=== PATIENT | female | born 1945 | race Caucasian/White ===

== ENCOUNTER 2024-03-16 09:14 | Inpatient (IN) ==
[2024-03-16 10:45] LABS: Activated Partial Thrombo Time 37.9 seconds (26.0-38.0); INR 1.21 (0.83-1.13)
[2024-03-16 10:47] LABS: Hematocrit 37.4 % (35-45); Hemoglobin 12.6 g/dL (11.5-14.3); Mean Corpuscular Hemoglobin 29.8 pg (27-33); Mean Corpuscular Hgb Conc 33.7 g/dL (31-36); Mean Corpuscular Volume 88.4 fL (80-97); Red Blood Count 4.24 10^6/uL (3.63-4.92); Red Cell Distribution Width 16.5 % (12-17); White Blood Count 10.3 10^3/uL (3.8-11.8)
[2024-03-16] MEDS: Piperacillin/Tazobac 3.375 BAG 3.375 GM/100 ML BAG IV ONE (11:20)
[2024-03-16 11:32] LABS: C Reactive Protein 84.34 mg/L (<8.01); Calcium 8.9 mg/dL (8.6-10.3); Creatinine, Serum 1.27 mg/dL (0.51-0.95); Globulin 2.9 g/dL (2-4); Potassium 4.2 mmol/L (3.5-5.0); Total Bilirubin 0.9 mg/dL (0.2-1.0); Total Protein 5.9 g/dL (6.4-8.9); eGFR CKD-EPI 42.8 (>60)
[2024-03-16 11:34] LABS: ABS Basophils 0.1 10^3/uL (0.0-0.1); ABS Lymphocytes 0.4 10^3/uL (1.0-4.8); ABS Monocytes 0.6 10^3/uL (0.0-0.9); ABS Neutrophils 9.2 10^3/uL (1.5-7.6); ABS Nucleated RBC 0.01 10^3/ul; Eosinophil % 0.2 %; Lymphocyte % 3.6 %; Mean Platelet Volume 8.6 fL (7.5-11.2); Nucleated Red Blood Cells % 0.1 %/100WBC (0.0-0.8); Platelet Count 64 10^3/uL (150-450)
[2024-03-16 12:07] LABS: High Sensitivity Troponin 1 Hr 14 pg/mL (<15)
[2024-03-16] MEDS: Lactated Ringers 1000 ml BAG 1,000 ML IV ONE (12:07)
[2024-03-16] MEDS ORDERED: Zosyn per Pharmacy NOTE FOLLOW UP SCH (15:00)
[2024-03-16 16:50] LABS: Urine Appearance Clear; Urine Bilirubin Negative (Negative); Urine Blood Negative (Negative); Urine Color Yellow; Urine Glucose Negative (Negative); Urine Ketones 1+ (Negative); Urine Nitrite Negative (Negative); Urine Protein Trace (Negative); Urine Specific Gravity 1.022 (1.002-1.030); Urine Urobilinogen Negative (Negative)
[2024-03-16] MEDS: ZOSYN 3.375 GM Q8H per EXTENDED INFUSION IV SCH (18:02)
[2024-03-16] MEDS: Heparin 5000 UNITS/ML 1 mL VIAL SUBCUT SCH (21:10)
[2024-03-17 06:23] LABS: Calcium 8.1 mg/dL (8.6-10.3); Creatinine, Serum 1.01 mg/dL (0.51-0.95); Potassium 3.9 mmol/L (3.5-5.0); eGFR CKD-EPI 56.3 (>60)
[2024-03-17 06:38] LABS: ABS Eosinophils 0.1 10^3/uL (0.0-0.5); ABS Lymphocytes 0.5 10^3/uL (1.0-4.8); ABS Monocytes 0.4 10^3/uL (0.0-0.9); ABS Neutrophils 3.4 10^3/uL (1.5-7.6); ABS Nucleated RBC 0.01 10^3/ul; Eosinophil % 1.3 %; Hematocrit 34.9 % (35-45); Hemoglobin 11.8 g/dL (11.5-14.3); Lymphocyte % 10.9 %; Mean Corpuscular Hemoglobin 30.2 pg (27-33); Mean Corpuscular Hgb Conc 33.7 g/dL (31-36); Mean Corpuscular Volume 89.4 fL (80-97); Mean Platelet Volume 8.9 fL (7.5-11.2); Nucleated Red Blood Cells % 0.3 %/100WBC (0.0-0.8); Platelet Count 58 10^3/uL (150-450); Red Blood Count 3.91 10^6/uL (3.63-4.92); Red Cell Distribution Width 16.4 % (12-17); White Blood Count 4.5 10^3/uL (3.8-11.8)
[2024-03-17] MEDS: Cholecalciferol (VIT D3) 1,000 unit TAB PO SCH (09:39)
[2024-03-18] MEDS: Levothyroxine 100 MCG/5 ML VIAL IV SCH (09:45)
[2024-03-18] MEDS: D5W 1/2 NS 1000 ml BAG 1,000 ML IV SCH (09:45)
[2024-03-18 16:47] LABS: Calcium 8.1 mg/dL (8.6-10.3); Creatinine, Serum 1.05 mg/dL (0.51-0.95); Potassium 3.9 mmol/L (3.5-5.0); TSH Ultra Thyroid Stim Horm 3.84 mcIU/mL (0.34-5.60); eGFR CKD-EPI 53.7 (>60)
[2024-03-18] MEDS ORDERED: Dextrose 50% Syringe 50 ml 25 GM/50 ML SYRINGE IV PUSH PRN (16:49)
[2024-03-18] MEDS: Dextrose 50% Syringe 50 ml 25 GM/50 ML SYRINGE ONE (17:13)
[2024-03-18] MEDS ORDERED: Lorazepam PYXIS KEY PRN (17:33)
[2024-03-18] MEDS: LORazepam 2 mg VIAL 1 ml IV PUSH ONE (17:50)
[2024-03-18] MEDS: LORazepam 2 mg VIAL 1 ml ONE (17:50)
[2024-03-18] MEDS: D5W 1/4 NS 1000 ml BAG 1,000 ML IV SCH (22:17)
[2024-03-19 08:56] LABS: Calcium 7.8 mg/dL (8.6-10.3); Creatinine, Serum 0.93 mg/dL (0.51-0.95); Potassium 3.4 mmol/L (3.5-5.0); eGFR CKD-EPI 62.1 (>60)
[2024-03-19] MEDS: Morphine 2 MG/ML SYRINGE IV ONE (09:10)
[2024-03-19] MEDS: Morphine 2 MG/ML SYRINGE IV PRN (16:03)
[2024-03-19 17:17] VITALS: BP 124/69
[2024-03-19] MEDS: LORazepam 2 mg VIAL 1 ml IV PUSH PRN (19:37)
[2024-03-20] MEDS: Morphine ORAL CONCENTRATE 5 MG/0.25 ML ORAL.SYRIN SL PRN (19:36)
[2024-03-21] MEDS: Morphine ORAL.SOLN 10 mg 2 mg/ml UDC 5 ml (10 mg) PO PRN (09:11)
[2024-03-21] MEDS: Morphine ORAL CONCENTRATE 5 MG/0.25 ML ORAL.SYRIN SL PRN (10:07)
== END 2024-03-22 09:25 | disposition hospice, home (50) | DRG 177 ==
LOC: EDHOLD 09:14 → ED 09:14 → MED 14:15 → SUATTDRO 03-18 08:46
PROVIDERS: ADMIT Student in an Organized Health Care Education/Training Program; ATTEND Internal Medicine